=== PATIENT | male | born 2000 | race Hispanic/Latino ===

== ENCOUNTER 2022-12-14 17:55 | Emergency (ER) | payer OTHER ==
[~2022-12-14] VITALS: Ht 167.6 cm; Wt 127.0 kg
[2022-12-14] MEDS ORDERED: ONDANSETRON 4MG INJ ONE (18:09)
[2022-12-14] MEDS ORDERED: MORPHINE 4 MG SYG ONE (18:09)
[2022-12-14] MEDS ORDERED: 0.9%NACL 1000ML 2,000 ML IV ONE (18:30)
[2022-12-14] MEDS ORDERED: MORPHINE 4 MG SYG IVP ONE (18:30)
[2022-12-14] MEDS ORDERED: ONDANSETRON 4MG INJ IVP ONE (18:30)
[2022-12-14 18:32] LABS: BASOPHILS % (AUTO) 0.4 % (0.0-5.0); EOSINOPHILS % (AUTO) 2.9 % (0.0-8.0); HEMATOCRIT 43.6 % (42-54); LYMPHOCYTES % (AUTO) 33.2 % (21.0-51.0); MEAN CORPUSCULAR HEMOGLOBIN 29.1 pg (27.0-33.0); MEAN CORPUSCULAR HGB CONC 33.9 g/dL (32.0-36.0); MEAN CORPUSCULAR VOLUME 85.8 fL (79-99); MONOCYTES % (AUTO) 6.8 % (3.0-13.0); NEUTROPHILS % (AUTO) 56.4 % (40.0-77.0); PLATELET COUNT (AUTO) 330 K/uL (130-400); RED BLOOD CELL COUNT(AUTO) 5.08 MIL/uL (4.50-6.20); RED CELL DISTRIBUTION WIDTH 13.1 % (11.0-15.5); WHITE BLOOD COUNT (AUTO) 7.6 K/uL (4.8-10.8)
[2022-12-14 18:40] LABS: CREATININE 1.1 mg/dL (0.5-1.5); POTASSIUM 3.6 mmol/L (3.5-5.1)
[2022-12-14] MEDS ORDERED: HYDROMORPHONE 1 MG INJ ONE (18:42)
[2022-12-14 18:49] LABS: ALBUMIN 4.6 g/dL (3.5-5.0); TOTAL PROTEIN, SERUM 8.1 g/dL (6.0-8.3)
[2022-12-14] MEDS ORDERED: HYDROMORPHONE 1 MG INJ IVP ONE ×2 (19:00→20:30)
[2022-12-14] MEDS ORDERED: ONDANSETRON ODT 4MG TAB ONE (21:11)
[2022-12-14 21:19] VITALS: BP 127/74
[2022-12-14] MEDS ORDERED: ONDANSETRON ODT 4MG TAB SL ONE (21:30)
== END 2022-12-14 21:29 | disposition short-term general hospital (02) ==
LOC: EDH 17:55
DX: T23.002A Burn of unspecified degree of left hand, unspecified site, initial encounter (principal); X08.8XXA Exposure to other specified smoke, fire and flames, initial encounter; Y93.89 Activity, other specified; Y92.89 Other specified places as the place of occurrence of the external cause; Y99.8 Other external cause status
CPT/HCPCS: 99285; 96374; 71045; 96375; 96361; 82550; 80053; 85025; 36415; 96376; 93005; 16000; J1170 ×2; J7030; J2405; J2270